=== PATIENT | male | born 1990 ===

== ENCOUNTER 2019-04-24 10:29 | Emergency (ER) | payer SELFPAY ==
[~2019-04-24] VITALS: Ht 177.8 cm; Wt 101.4 kg
[2019-04-24 10:38] VITALS: BP 137/89
== END 2019-04-24 12:45 | disposition home or self-care (01) ==
LOC: EMS 10:39
DX: S83.92XA Sprain of unspecified site of left knee, initial encounter (principal); F17.210 Nicotine dependence, cigarettes, uncomplicated; W19.XXXA Unspecified fall, initial encounter; Y93.89 Activity, other specified; Y92.89 Other specified places as the place of occurrence of the external cause; Y99.8 Other external cause status
CPT/HCPCS: 29505; 99406